=== PATIENT | female | born 1940 | race Caucasian/White ===

== ENCOUNTER 2017-05-04 20:42 | Emergency (ER) | payer BC, MEDICARE, OTHER ==
[~2017-05-04] VITALS: Ht 152.4 cm; Wt 88.7 kg
[2017-05-04 20:59] VITALS: BP 172/80
[2017-05-04] MEDS ORDERED: LIDOCAINE 1%, 20ML ONE (21:18)
[2017-05-04] MEDS ORDERED: DIPH,PERTUSS(ACELL),TET VAC/PF 0.5 ML IM-VACC ONE ×2 (21:18→21:30)
[2017-05-04] MEDS ORDERED: LIDOCAINE 1%, 20ML SQ ONE (21:30)
== END 2017-05-04 22:41 | disposition home or self-care (01) ==
LOC: ED 22:05
DX: S06.0X0A Concussion without loss of consciousness, initial encounter (principal); S01.01XA Laceration without foreign body of scalp, initial encounter; W01.190A Fall on same level from slipping, tripping and stumbling with subsequent striking against furniture, initial encounter; Y93.89 Activity, other specified; Y92.098 Other place in other non-institutional residence as the place of occurrence of the external cause; Y99.8 Other external cause status
CPT/HCPCS: 13121; 13122; 70450; 90471; 90715; 99285